=== PATIENT | female | born 1970 | race Two or more races ===

== ENCOUNTER 2019-04-20 19:57 | Emergency (ER) | payer SELFPAY ==
[~2019-04-20] VITALS: Ht 162.6 cm; Wt 86.2 kg
[2019-04-20 20:31] VITALS: BP 153/77
== END 2019-04-20 22:05 | disposition home or self-care (01) ==
LOC: ER 19:57
DX: F41.9 Anxiety disorder, unspecified (principal); Z76.0 Encounter for issue of repeat prescription

== ENCOUNTER 2019-06-27 09:36 | Emergency (ER) | payer MEDICAID ==
[~2019-06-27] VITALS: Ht 162.6 cm; Wt 90.7 kg
[2019-06-27] MEDS ORDERED: traMADol HCL 50 MG TAB PO ONE (11:30)
[2019-06-27 11:49] VITALS: BP 136/61
== END 2019-06-27 11:54 | disposition home or self-care (01) ==
LOC: ER 09:36
DX: F41.9 Anxiety disorder, unspecified (principal); Z76.0 Encounter for issue of repeat prescription